=== PATIENT | male | born 1975 | race Caucasian/White ===

== ENCOUNTER 2016-07-23 19:11 | Emergency (ER) | payer OTHER ==
[~2016-07-23] VITALS: Ht 175.3 cm; Wt 129.1 kg
[~2016-07-23 19:11] MED LIST: CIPRO500 MG PO; DIOVAN HCT 31 TABLET PO; HYDROCHLOROTH12.5 M1 PO; MOBIC7.5 MG PO
[2016-07-23 19:32] LABS: HEMATOCRIT 43.6 % (38.0-50.0); MCHC 34.2 G/DL (30.0-36.0); MCV 84.8 FL (86-99); MEAN PLAT.VOLUME 10.3 uM^3 (9.0-12.4); PLATELET COUNT 277 K/uL (156-360); RBC DIS.WIDTH-CV 12.4 % (11.8-14.6); RBC DIS.WIDTH-SD 38.3 % (39-53); RED BLOOD COUNT 5.14 M/uL (4.00-5.50); WHITE BLOOD COUNT 7.7 K/uL (4.1-10.2)
[2016-07-23 19:41] LABS: CHLORIDE 104 mEq/L (99-109); SODIUM 139 mEq/L (136-147)
[2016-07-23 19:42] LABS: GLUCOSE 98 mg/dL (70-99)
[2016-07-23 19:44] LABS: ANION GAP 12 MEQ/L (2-14)
[2016-07-23 19:46] LABS: GFR ESTIMATE (CALCULATED) > 59 mL/min/
[2016-07-23 19:47] LABS: UREA NITROGEN (BUN) 10 mg/dL (9-23)
[2016-07-23 19:53] LABS: TROP-I INTERPRETATION NEGATIVE; TROPONIN-I < 0.01 ng/mL (0.0-0.30)
[2016-07-23 21:05] LABS: D-DIMER ELISA 0.25 mg/L FEU (< 0.57)
[2016-07-23 21:08] LABS: TROP-I INTERPRETATION NEGATIVE; TROPONIN-I < 0.01 ng/mL (0.0-0.30)
[2016-07-23 21:35] VITALS: BP 128/89
== END 2016-07-23 21:35 | disposition home or self-care (01) ==
LOC: EME 19:11
PROVIDERS: Emergency Medicine
DX: R07.9 Chest pain, unspecified (principal); R06.02 Shortness of breath; R23.1 Pallor; I10 Essential (primary) hypertension; Z91.14 Patient's other noncompliance with medication regimen
CPT/HCPCS: 71020; 80048; 84484; 85027; 85379; 93005; 99281; 99284